=== PATIENT | female | born 1990 | race Caucasian/White ===

== ENCOUNTER 2017-09-23 01:08 | Emergency (ER) | payer SELFPAY ==
[~2017-09-23] VITALS: Ht 154.9 cm; Wt 70.3 kg
[2017-09-23 01:10] VITALS: BP_SYST 130
[2017-09-23] MEDS ORDERED: DIPHENHYDRAMINE INJ 50 MG/ML VIAL IM ONE (01:30)
[2017-09-23] MEDS ORDERED: PREDNISONE 20 MG TABLET PO ONE (01:30)
[2017-09-23] MEDS ORDERED: IPRATROPIUM/ALBUTEROL SULFATE 3 ML AMPUL.NEB INH ONE (02:15)
[2017-09-23] MEDS ORDERED: methylPREDNISolone SOD SUCC/PF 62.5 MG/ML VIAL IM ONE (02:15)
[2017-09-23 02:24] VITALS: BP_SYST 115
== END 2017-09-23 02:24 | disposition home or self-care (01) ==
LOC: SED 01:08
DX: T78.3XXA Angioneurotic edema, initial encounter (principal)
CPT/HCPCS: 96372; 99283; J1200; J7512